=== PATIENT | male | born 1950 | race Caucasian/White ===

== ENCOUNTER → 2020-10-17 | Outpatient (CLI) | payer MEDICARE, OTHER | LOC: US 09:31 | PROVIDERS: Internal Medicine Nephrology | DX: N18.30 Chronic kidney disease, stage 3 unspecified (principal); N28.1 Cyst of kidney, acquired | CPT/HCPCS: 80053; 82570; 84156 ==

== ENCOUNTER → 2020-11-02 | Outpatient (CLI) | payer MEDICARE, OTHER | LOC: KOH-I 10-12 14:30 | DX: Z87.891 Personal history of nicotine dependence (principal) | CPT/HCPCS: 71271 ==

== ENCOUNTER → 2021-08-07 | Outpatient (CLI) | payer MEDICARE, OTHER | LOC: US 12:43 | DX: N28.1 Cyst of kidney, acquired (principal) ==

== ENCOUNTER 2022-03-07 21:02 | Observation (INO) | payer MEDICARE, OTHER ==
[~2022-03-07] VITALS: Ht 177.8 cm; Wt 91.2 kg
[2022-03-07 21:43] LABS: HEMOGLOBIN 14.8 gm/dl (14.0-17.5); RED BLOOD COUNT 4.71 M/UL (4.20-5.50); WHITE BLOOD COUNT 14.4 K/UL (4.5-11.0)
[2022-03-08] MEDS ORDERED: EPLERENONE50 MG PO (11:42)
[2022-03-08] MEDS ORDERED: XARELTO15 MG PO (11:42)
[2022-03-08] MEDS ORDERED: ANORO ELLIPTA1 EACH INH (11:42)
[2022-03-08] MEDS ORDERED: ATORVASTATIN CA40 MG PO (11:43)
[2022-03-08] MEDS ORDERED: ENTRESTO 49 MG1 EACH PO (11:43)
[2022-03-08] MEDS ORDERED: FUROSEMIDE40 MG PO (11:43)
[2022-03-08] MEDS ORDERED: MULTIVITAMIN1 EACH PO (11:44)
[2022-03-08] MEDS ORDERED: CARVEDILOL25 MG PO (11:44)
[2022-03-08] MEDS ORDERED: VITAMIN C500 M4 PO (11:44)
[2022-03-08] MEDS ORDERED: TRIAMCINOLONE A15 GM TP (11:47)
--- NOTE | 2022-03-08 13:51 | NUR ---
PT TOLERATED HIS LUNCH WELL. PT DENIES ANY ABDOMINAL PAIN, NAUSEA AND STATES THAT HE FEELS BETTER AFTER HAVING SEVERAL BOWEL MOVEMENTS THROUGHOUT THE NIGHT TIME. DISCHARGE PAPERS WILL BE PREPARED FOR THE PT. PT WILL BE INSTRUCTED TO FOLLOW-UP NEEDED OR WITH NEW OR CHANGING SYMPTOMS.
== END 2022-03-08 14:49 | disposition home or self-care (01) ==
LOC: ER1 21:02 → CDU 03-08 01:10 → M/S 03-08 01:10
PROVIDERS: Physician Assistant; ADMIT Internal Medicine
DX: R10.9 Unspecified abdominal pain (principal); D72.829 Elevated white blood cell count, unspecified; I25.10 Atherosclerotic heart disease of native coronary artery without angina pectoris; I25.5 Ischemic cardiomyopathy; I13.0 Hypertensive heart and chronic kidney disease with heart failure and stage 1 through stage 4 chronic kidney disease, or unspecified chronic kidney disease; N18.30 Chronic kidney disease, stage 3 unspecified; I50.22 Chronic systolic (congestive) heart failure; J44.9 Chronic obstructive pulmonary disease, unspecified; I73.9 Peripheral vascular disease, unspecified; Z79.01 Long term (current) use of anticoagulants; Z79.899 Other long term (current) drug therapy; Z87.891 Personal history of nicotine dependence; Z88.1 Allergy status to other antibiotic agents; Z95.5 Presence of coronary angioplasty implant and graft
CPT/HCPCS: 80053; 81001; 82150; 82550; 82553; 83690; 84484; 85025; 96374; 99285; G0378; J1650; Q9967